=== PATIENT | female | born 1950 | race Two or more races ===

== ENCOUNTER 2018-09-25 12:47 | Emergency (ER) | payer OTHER ==
[~2018-09-25] VITALS: Ht 157.5 cm; Wt 53.1 kg
[2018-09-25] MEDS ORDERED: SYNTHROID88 MCG (14:38)
[2018-09-25] MEDS ORDERED: PLAQUENIL PO (14:39)
[2018-09-25] MEDS ORDERED: METHOTREXATE2.5 MG (14:40)
[2018-09-25] MEDS ORDERED: ZANTAC150 M3 (14:40)
[2018-09-25] MEDS ORDERED: FOLIC ACID1 MG (14:41)
[2018-09-25] MEDS ORDERED: ACTONEL150 MG (16:07)
[2018-09-25] MEDS ORDERED: NEURONTIN300 MG PO ×2 (16:27)
[2018-09-25] MEDS ORDERED: VALACYCLOVIR1000 MG PO ×2 (16:27)
[2018-09-25] MEDS ORDERED: ZOVIRAX30 GM TOP ×2 (16:27)
[2018-09-25] MEDS ORDERED: VIROPTIC7.5 ML OP (16:27)
== END 2018-09-25 17:07 | disposition home or self-care (01) ==
LOC: ER 12:47
DX: B02.30 Zoster ocular disease, unspecified (principal)

== ENCOUNTER 2018-09-27 16:53 | Emergency (ER) | payer OTHER ==
[~2018-09-27] VITALS: Ht 157.5 cm; Wt 53.1 kg
[~2018-09-27 16:53] MED LIST: ACTONEL150 MG; FOLIC ACID1 MG; METHOTREXATE2.5 MG; NEURONTIN300 MG PO; PLAQUENIL PO; SYNTHROID88 MCG; VALACYCLOVIR1000 MG PO; VIROPTIC7.5 ML OP; ZANTAC150 M3; ZOVIRAX30 GM TOP
[2018-09-28] MEDS ORDERED: VALACYCLOVIR1000 MG PO ×2 (08:11)
[2018-09-28] MEDS ORDERED: NEURONTIN300 MG PO ×2 (08:11)
[2018-09-28] MEDS ORDERED: ZOVIRAX30 GM TOP ×2 (08:11)
== END 2018-09-28 11:00 | disposition home or self-care (01) ==
LOC: ER 16:53
DX: B02.8 Zoster with other complications (principal); B02.39 Other herpes zoster eye disease